=== PATIENT | male | born 1955 | race Caucasian/White ===

== ENCOUNTER 2021-12-24 10:29 | Outpatient (CLI) | payer BC | END 2021-12-24 10:30 | disposition home or self-care (01) | LOC: ULT 10:29 | PROVIDERS: ATTEND Surgery | DX: R10.11 Right upper quadrant pain (principal); K80.20 Calculus of gallbladder without cholecystitis without obstruction | CPT/HCPCS: 76705 ==

== ENCOUNTER 2021-12-26 09:32 | Outpatient (CLI) | payer BC | END 2021-12-26 09:33 | disposition home or self-care (01) | LOC: LABBT 09:32 | PROVIDERS: ATTEND Surgery | DX: Z01.818 Encounter for other preprocedural examination (principal); K80.20 Calculus of gallbladder without cholecystitis without obstruction; Z20.822 Contact with and (suspected) exposure to COVID-19 | CPT/HCPCS: 71046; 87811; 93005; 93010 ==

== ENCOUNTER 2021-12-27 11:09 | Day surgery (SDC) | payer BC ==
[2021-12-26 08:31] VITALS: BMI 24.2
[2021-12-27] MEDS ORDERED: Acetaminophen 500 MG TAB ONE (11:33)
[2021-12-27] MEDS ORDERED: Iopamidol 30 ML ONE (13:34)
[2021-12-27] MEDS ORDERED: Bupivacaine/Epinephrine 0.25% 30 ML VIAL ONE (13:34)
[2021-12-27] MEDS ORDERED: SUGAMMADEX SODIUM 200 MG/2 ML VIAL ONE (13:40)
[2021-12-27] MEDS ORDERED: fentaNYL Citrate/PF 100 MCG/2 ML SYRINGE ONE (13:40)
[2021-12-27] MEDS ORDERED: Famotidine/PF 20 mg/2ml Vial ONE (13:41)
[2021-12-27] MEDS ORDERED: Sodium Chloride 0.9% 100 ML ONE (13:44)
[2021-12-27] MEDS ORDERED: CEFAZOLIN 2 GM VIAL ONE (13:44)
[2021-12-27] MEDS ORDERED: Metoclopramide HCl 10 MG/2 ML VIAL ONE (13:51)
[2021-12-27] MEDS ORDERED: Dexamethasone 20 MG/5 ML VIAL ONE (13:51)
[2021-12-27] MEDS ORDERED: Ketorolac Tromethamine 30 MG/ML VIAL ONE (13:51)
[2021-12-27] MEDS ORDERED: Ondansetron PF 4 MG/2 ML Vial ONE (13:51)
[2021-12-27] MEDS ORDERED: Lidocaine 1% MPF 2 ML VIAL ONE (13:51)
[2021-12-27] MEDS ORDERED: PROPOFOL 200 MG/20 ML VIAL ONE (13:51)
[2021-12-27] MEDS ORDERED: Rocuronium Bromide 10 MG/ML (10ML VIAL) ONE (13:51)
[2021-12-27] MEDS ORDERED: Fentanyl 100 MCG/2 ML VIAL ONE (15:39)
[2021-12-27] MEDS ORDERED: HYDROcodone/Acetaminophen 5/325 mg Tablet ONE (16:20)
== END 2021-12-27 17:52 | disposition home or self-care (01) ==
LOC: SDC 11:09
PROVIDERS: ATTEND Surgery
PROC: 0FT44ZZ Resection of Gallbladder, Percutaneous Endoscopic Approach (ICD-10-PCS; principal; 2021-12-27)
PROC: BF121ZZ Fluoroscopy of Gallbladder using Low Osmolar Contrast (ICD-10-PCS; principal; 2021-12-27)
DX: K80.10 Calculus of gallbladder with chronic cholecystitis without obstruction (principal); K82.8 Other specified diseases of gallbladder; I10 Essential (primary) hypertension; E03.9 Hypothyroidism, unspecified; E11.9 Type 2 diabetes mellitus without complications; E78.00 Pure hypercholesterolemia, unspecified; Z79.84 Long term (current) use of oral hypoglycemic drugs; Z79.899 Other long term (current) drug therapy; Z79.890 Hormone replacement therapy; Z88.8 Allergy status to other drugs, medicaments and biological substances
CPT/HCPCS: 47532; 88304; C1713; J0690; J1100; J1610; J1885; J2405; J2704; J2765; J3010; J3490; Q9967; S0028